=== PATIENT | female | born 2005 | race Caucasian/White ===

== ENCOUNTER 2024-04-18 22:35 | Emergency (ER) | payer BC, SELFPAY ==
--- NOTE | ~2024-04-18 | XR_ITS ---
EXAMINATION: XR HAND, LEFT CLINICAL INFORMATION: Fall. Pain. COMPARISON: None available. TECHNIQUE: PA, lateral, and oblique views of the left hand. FINDINGS: The bones and soft tissues are normal. No fracture. Alignment is anatomic. Joint spaces are maintained. No erosions or soft tissue calcifications. XR/XR hand LT 2V IMPRESSION: No significant abnormality identified. Electronically signed by: Atif Lynch MD 04/19/2024 03:58 AM [facility]
[2024-04-18 22:38] VITALS: BP 138/92; PULSE 94; RESP 16; TEMP 37.2; O2SAT 97; BMI 21.9
--- NOTE | 2024-04-19 00:59 | ED_ITS ---
HPI - Fall General Chief Complaint: Fall Stated Complaint: Lt Arm injury/Fell down stairs Time Seen by Provider: 04/19/24 00:24 Source: patient Mode of arrival: ambulatory Limitations: no limitations History of Present Illness ED Provider: john KIM Narrative: Patient apparently fell 3 steps around 2200 tonight hit her back of the head and lower back and left elbow and left hand no loss of consciousness ambulatory in steady gait no nausea no vomiting Related Data Allergies Allergy/AdvReac Type Severity Reaction Status Date / Time No Known Allergies Allergy Verified 04/18/24 22:41 Review of Systems Review of Systems: Yes all other systems are reviewed and are negative [facility] Social History Social History Advance Directives: No Advance Directives Information Provided: No Physical Exam Vital Signs: Vital Signs: Last Vital Signs Temp 98.9 F 04/18/24 22:38 Pulse 94 04/18/24 22:38 Resp 16 04/18/24 22:38 BP 138/92 H 04/18/24 22:38 Pulse Ox 97 04/18/24 22:38 O2 Del Method Room Air 04/18/24 22:38 BMI result Body Mass Index 21.9 Appearance: Alert. Oriented X3. No acute distress. Eyes: PERRLA, No Nystagmus ENT: Pharynx normal. Oral Mucosa moist atraumatic normocephalic tympanic membrane intact Neck: Normal inspection. Neck supple. No midline tenderness CVS: Normal heart rate and rhythm. Pulses normal. Respiratory: No respiratory distress. Equal air entry bilateral, Abdomen: Soft and nontender. Bowel sounds are present, no mass palpable, no CVA tenderness Skin: Skin warm and dry. Normal skin color. Normal skin turgor. Extremities: No lower extremity edema. No calf tenderness soft tissue tenderness left elbow and left hand back: No midline tenderness good range of movement Neuro: Oriented X 3. No motor deficit. Normal gait Medical Decision Making Independent Interpretation I performed an independent interpretation of an: Plain X-Ray Interpretation: Negative for fracture Discharge Plan Discharge Clinical Impression: Fall Patient Disposition: Home, Self-Care Instructions: Fall Prevention (ED) Additional Instructions: Care as advised Print Language: Indonesian
[2024-04-19 01:16] VITALS: BP 138/92; PULSE 94; RESP 16; TEMP 37.2
[2024-04-19 01:18] VITALS: BP 138/92; PULSE 94; RESP 16; TEMP 37.2; O2SAT 97
== END 2024-04-19 01:19 | disposition home or self-care (01) ==
PROVIDERS: Emergency Provider Internal Medicine
DX: M79.642 Pain in left hand (principal); M54.50 Low back pain, unspecified; Z91.81 History of falling
CPT/HCPCS: 73120; 99283; 99284